=== PATIENT | female | born 1960 | race African-American/Black ===

== ENCOUNTER 2021-02-02 18:14 | Inpatient (IN) | payer OTHER ==
[2021-02-02] MEDS ORDERED: POTASSIUM CHLORIDE TABS 20 MEQ TABLET.ER (FP) PO ONE ×2 (19:59→22:23)
[2021-02-02 20:22] LABS: BASO % 0.8 % (0-2.0); EOS % 1.1 % (0-4.5); HEMATOCRIT 37.7 % (32.4-45.2); HEMOGLOBIN 12.3 GM/dL (10.7-15.3); LYMPH % 36.7 % (8-40); MCHC 32.8 g/dl (32.0-36.0); MEAN CELL VOLUME 76.4 fl (80-96); MEAN PLT VOLUME 9.7 fl (7.5-11.1); MONO % 7.8 % (3.8-10.2); NEUT % 53.6 % (42.8-82.8); PLATELET COUNT 308 10^3/uL (134-434); RBC 4.93 M/mm3 (3.60-5.2); RDW 14.7 % (11.6-15.6)
[2021-02-02] MEDS ORDERED: SODIUM CHLORIDE 0.9% 500 ML INFUS.BAG IV ONE (20:37)
[2021-02-02 20:46] LABS: ALBUMIN 3.7 g/dl (3.4-5.0); BLOOD UREA NITROGEN 15.9 mg/dL (7-18); CALCIUM 9.8 mg/dL (8.5-10.1)
[2021-02-02 20:52] LABS: TOT PROT 8.1 g/dl (6.4-8.2)
[2021-02-02 20:53] LABS: BILIRUBIN,TOTAL 0.4 mg/dL (0.2-1)
[2021-02-02 21:44] LABS: CHLORIDE 116 mmol/L (98-107); SODIUM 146 mmol/L (136-145)
[2021-02-02 21:50] LABS: BLOOD UREA NITROGEN 13.1 mg/dL (7-18); GLUCOSE,RANDOM 171 mg/dL (74-106)
[2021-02-02 21:51] LABS: CO2 23 mmol/L (21-32); MAGNESIUM 1.3 mg/dL (1.8-2.4)
[2021-02-02 21:52] LABS: SGPT/ALT 13 U/L (13-61)
[2021-02-02 21:53] LABS: ALBUMIN 2.5 g/dl (3.4-5.0); ALK PHOS 56 U/L (45-117); ANION GAP 7 MMOL/L (8-16); BILIRUBIN,TOTAL 0.2 mg/dL (0.2-1); CALCIUM 6.8 mg/dL (8.5-10.1); CREATININE 0.6 mg/dL (0.55-1.3); SGOT/AST 4 U/L (15-37); TOT PROT 4.8 g/dl (6.4-8.2)
[2021-02-02] MEDS ORDERED: MAGNESIUM SULF 50% (8.12 MEQ/2 ML-1 GM VIAL) IVPB ONE (22:14)
[2021-02-02] MEDS ORDERED: KCL 10 MEQ IVPB 30 MEQ/300 ML INFUS.BAG IVPB ONE (22:24)
[2021-02-02] MEDS: KCL 10 MEQ IVPB 10 MEQ/100 ML INFUS.BAG IVPB SCH (22:46)
[2021-02-02] MEDS ORDERED: MAGNESIUM SULFATE IN WATER 2 GM/50 ML IVPB IVPB ONE (22:47)
[2021-02-03] MEDS: KCL 10 MEQ IVPB 10 MEQ/100 ML INFUS.BAG IVPB SCH ×2 (00:09→01:14)
[2021-02-03 02:20] VITALS: BMI 29.9
[2021-02-03 03:35] LABS: BLOOD UREA NITROGEN 13.4 mg/dL (7-18)
[2021-02-03 03:38] LABS: CREATININE 0.8 mg/dL (0.55-1.3)
[2021-02-03] MEDS ORDERED: POTASSIUM CHLORIDE TABS 20 MEQ TABLET.ER (FP) PO ONE (03:56)
[2021-02-03] MEDS: INSULIN SLIDING SCALE (NOVOLOG) 1 VIAL SQ SCH ×2 (06:17→11:47)
[2021-02-03] MEDS ORDERED: CHOLECALCIFEROL (VIT D3) 1,000 UNIT (25 MCG) TABLET PO SCH (10:00)
[2021-02-03] MEDS ORDERED: ASCORBIC ACID 500 MG TABLET (FP) PO SCH (10:00)
[2021-02-03] MEDS ORDERED: ENOXAPARIN NA (PORCINE) 40 MG/0.4 ML DISP.SYRIN SQ SCH (10:00)
[2021-02-03] MEDS ORDERED: LOSARTAN POTASSIUM 50 MG TABLET PO SCH (10:00)
[2021-02-03] MEDS ORDERED: VITAMIN E 400 INTERNATIONAL-UNITS CAPSULE (FP) PO SCH (10:00)
[2021-02-03 10:03] LABS: BLOOD UREA NITROGEN 12.7 mg/dL (7-18)
[2021-02-03 10:06] LABS: CALCIUM 8.9 mg/dL (8.5-10.1)
[2021-02-03 10:07] LABS: CREATININE 0.8 mg/dL (0.55-1.3)
[2021-02-03] MEDS ORDERED: PT OWN MED DRAWER 7, Y5N ONE ×2 (10:30→13:39)
[2021-02-03 13:00] VITALS: BP 153/79; PULSE 77; TEMP 98.5
== END 2021-02-03 16:32 | disposition home or self-care (01) | DRG 425 ==
LOC: JER 18:14 → OBSVTOIN 22:27 → JERBED 22:27 → J8W 02-03 01:51
PROVIDERS: ADMIT Internal Medicine; ATTEND Internal Medicine
DX: E87.6 Hypokalemia (principal); I10 Essential (primary) hypertension; E11.9 Type 2 diabetes mellitus without complications; R25.2 Cramp and spasm; R11.0 Nausea; Z98.84 Bariatric surgery status
CPT/HCPCS: 36415; 80048; 80053; 82962; 83735; 85025; 93005; 93010; 99285-25; C9803; U0003; U0005

== ENCOUNTER 2021-03-14 14:01 | Emergency (ER) | payer OTHER ==
[2021-03-14 14:08] VITALS: TEMP 97.8; BMI 28.8
[2021-03-14] MEDS ORDERED: SODIUM CHLORIDE 0.9% 500 ML INFUS.BAG IV ONE (15:13)
[2021-03-14 16:38] LABS: BASO % 0.9 % (0-2.0); EOS % 1.5 % (0-4.5); MCH 25.2 pg (25.7-33.7); MCHC 33.2 g/dl (32.0-36.0); MEAN CELL VOLUME 75.8 fl (80-96); MEAN PLT VOLUME 9.1 fl (7.5-11.1); MONO % 7.9 % (3.8-10.2); NEUT % 56.7 % (42.8-82.8); PLATELET COUNT 334 10^3/uL (134-434); RBC 4.75 M/mm3 (3.60-5.2); RDW 16.4 % (11.6-15.6); WHITE BLOOD COUNT 7.5 K/mm3 (4.0-10.0)
[2021-03-14 16:45] LABS: PROTHROMBIN TIME (PATIENT) 12.3 SEC (9.7-13.0)
[2021-03-14 16:48] LABS: ACTIVATED PTT 32.9 SECONDS (25.2-36.5)
[2021-03-14 16:58] LABS: CHLORIDE 102 mmol/L (98-107); SODIUM 137 mmol/L (136-145)
[2021-03-14 17:02] LABS: ALBUMIN 3.9 g/dl (3.4-5.0); ANION GAP 8 MMOL/L (8-16); CO2 27 mmol/L (21-32); GLUCOSE,RANDOM 151 mg/dL (74-106); MAGNESIUM 1.7 mg/dL (1.8-2.4)
[2021-03-14 17:03] LABS: BLOOD UREA NITROGEN 26.8 mg/dL (7-18)
[2021-03-14 17:05] LABS: PHOSPHOROUS 3.4 mg/dL (2.5-4.9); SGOT/AST 19 U/L (15-37); SGPT/ALT 13 U/L (13-61)
[2021-03-14 17:06] LABS: CREATININE 1.2 mg/dL (0.55-1.3)
[2021-03-14 17:07] LABS: BILIRUBIN,TOTAL 0.4 mg/dL (0.2-1); TOT PROT 7.8 g/dl (6.4-8.2)
[2021-03-14 17:08] LABS: ALK PHOS 98 U/L (45-117)
[2021-03-14] MEDS ORDERED: POTASSIUM CHLORIDE TABS 20 MEQ TABLET.ER (FP) PO ONE (18:00)
[2021-03-14] MEDS ORDERED: LIDOCAINE HCL 2% JELLY 10 ML CARTRIDGE UR ONE (18:23)
[2021-03-14] MEDS ORDERED: MAGNESIUM 1GM/D5W - 1 GM/100 ML IVPB IVPB ONE (18:25)
[2021-03-14] MEDS ORDERED: POTASSIUM CHLORIDE TABS 10 MEQ TABLET.ER (FP) ONE (18:25)
[2021-03-14] MEDS ORDERED: KETOROLAC TROMETHAMINE 15 MG/ML VIAL ONE (18:38)
[2021-03-14 18:56] LABS: URINE APPEARANCE CLEAR; URINE BILIRUBIN NEGATIVE (NEGATIVE); URINE COLOR YELLOW; URINE GLUCOSE (UA) TRACE (NEGATIVE); URINE KETONE TRACE (NEGATIVE); URINE LEUK ESTERASE NEGATIVE (NEGATIVE); URINE NITRITE NEGATIVE (NEGATIVE); URINE PROTEIN NEGATIVE (NEGATIVE); URINE UROBILINOGEN 0.2 mg/dL (0.2-1.0)
[2021-03-14 19:13] LABS: BLOOD UREA NITROGEN 25.4 mg/dL (7-18); CALCIUM 9.5 mg/dL (8.5-10.1)
[2021-03-14 19:17] LABS: CREATININE 1.2 mg/dL (0.55-1.3)
[2021-03-14 20:14] VITALS: BP 150/90; PULSE 92
== END 2021-03-14 20:15 | disposition home or self-care (01) ==
LOC: JER 14:01
PROC: 3E033NZ Introduction of Analgesics, Hypnotics, Sedatives into Peripheral Vein, Percutaneous Approach (ICD-10-PCS; principal; 2021-03-14)
DX: R53.1 Weakness (principal); R19.7 Diarrhea, unspecified; R10.30 Lower abdominal pain, unspecified
CPT/HCPCS: 36415; 71046-TC-FY; 80048; 80053; 81003; 82550; 83735; 84100; 84443; 84484; 85025; 85610; 85730; 87086; 93005; 93010; 96365; 99284-25; C9803; U0003; U0005

== ENCOUNTER 2022-11-20 08:40 | Day surgery (SDC) | payer OTHER ==
[2022-11-16 13:09] VITALS: BMI 29.2
[2022-11-20] MEDS ORDERED: CEFAZOLIN 2 GM in DEXTROSE 5%-WATER - 50 ML IVPB ONE (09:03)
[2022-11-20] MEDS ORDERED: CELECOXIB 200 MG CAPSULE PO ONE (09:03)
[2022-11-20] MEDS ORDERED: TRANEXAMIC ACID 1000 MG/10 ML VIAL IVPUSH ONE (09:03)
[2022-11-20] MEDS ORDERED: DEXTROSE 50%-WATER 25 GM/50 ML DISP.SYRIN ONE ×2 (09:13→12:36)
[2022-11-20] MEDS ORDERED: ONDANSETRON 4 MG/2 ML VIAL ONE (09:18)
[2022-11-20] MEDS ORDERED: ceFAZolin SODIUM 1 GM VIAL ONE ×3 (09:18→10:26)
[2022-11-20] MEDS ORDERED: DEXAMETHASONE SOD PHOSPHATE 4 MG/1 ML VIAL ONE (09:18)
[2022-11-20] MEDS ORDERED: KETOROLAC TROMETHAMINE 30 MG/1 ML VIAL ONE (09:19)
[2022-11-20] MEDS ORDERED: MIDAZOLAM HCL 2 MG/2 ML SINGLE DOSE VIAL ONE (10:12)
[2022-11-20] MEDS ORDERED: BUPIVACAINE LIPOSOME/PF (EXPAREL) 266 MG/20 ML VIAL ONE (10:12)
[2022-11-20] MEDS ORDERED: BUPIVACAINE HCL/PF 0.5% (5 MG/ML) 30 ML VIAL IJ ONE (10:12)
[2022-11-20] MEDS ORDERED: ACETAMINOPHEN INJECTION 100 ML IVPB ONE (10:12)
[2022-11-20] MEDS ORDERED: VANCOMYCIN 1,000 MG VIAL (RESTRICTED TO ID ONLY) ONE (10:26)
[2022-11-20] MEDS ORDERED: PROPOFOL 20 ML ONE ×3 (10:56→11:27)
[2022-11-20] MEDS ORDERED: ONDANSETRON 4 MG/2 ML VIAL IVPUSH PRN (10:58)
[2022-11-20] MEDS ORDERED: LACTATED RINGERS SOLUTION 1,000 ML IV SCH (11:00)
[2022-11-20] MEDS ORDERED: PATIENT'S OWN MEDICATION (NON-FORMULARY) (Semaglutide [Ozempic] 1 MG/0.75 ML Pen.Injctr) SQ SCH (11:00)
[2022-11-20] MEDS ORDERED: VANCOMYCIN 1,000 MG VIAL (RESTRICTED TO ID ONLY) IVPB ONE (12:02)
[2022-11-20] MEDS ORDERED: DEXTROSE 50%-WATER 25 GM/50 ML DISP.SYRIN IVPUSH ONE (12:41)
[2022-11-20 13:36] LABS: CALCIUM 9.1 mg/dl (8.5-10); CREATININE 0.9 mg/dl (0.55-1.3); POTASSIUM 3.7 mmol/L (3.5-5.1)
[2022-11-20] MEDS: metFORMIN HCL 500 MG TABLET (FP) PO SCH (17:28)
[2022-11-20] MEDS: oxyCODONE HCL 5 MG TABLET PO PRN ×2 (18:21→19:36)
[2022-11-20] MEDS: CEFAZOLIN SODIUM 2 GM in DEXTROSE 5%-WATER 100 ML IVPB SCH (18:21)
[2022-11-20] MEDS ORDERED: HYDROmorphone HCl 2 MG/ML VIAL IVPUSH PRN (21:05)
[2022-11-20] MEDS ORDERED: ACETAMINOPHEN 1000 MG/100 ML BAG IVPB PRN (21:07)
[2022-11-20] MEDS ORDERED: HYDROmorphone HCl 2 MG/ML VIAL IVPB PRN (21:26)
[2022-11-20] MEDS ORDERED: HYDROmorphone HCl 2 MG/ML VIAL IVPB ONE (21:35)
[2022-11-20] MEDS ORDERED: ESCITALOPRAM OXALATE 10 MG TABLET PO SCH (22:00)
[2022-11-20] MEDS ORDERED: INSULIN (LEVEMIR) 100 UNITS/ML UNITS SQ SCH (22:00)
[2022-11-20] MEDS: GABAPENTIN 300 MG CAPSULE PO SCH (22:01)
[2022-11-20] MEDS: SENNOSIDES/DOCUSATE COMBO (SENNA PLUS) TABLET (UD) PO SCH (22:01)
[2022-11-21] MEDS: LACTATED RINGERS SOLUTION 1,000 ML IV SCH ×2 (00:16→14:21)
[2022-11-21] MEDS: CEFAZOLIN SODIUM 2 GM in DEXTROSE 5%-WATER 100 ML IVPB SCH (03:01)
[2022-11-21] MEDS: oxyCODONE HCL 5 MG TABLET PO PRN ×4 (05:19→16:28)
[2022-11-21] MEDS: metFORMIN HCL 500 MG TABLET (FP) PO SCH ×2 (06:13→16:53)
[2022-11-21] MEDS ORDERED: INSULIN (LEVEMIR) 100 UNITS/ML UNITS SQ SCH (07:00)
[2022-11-21] MEDS ORDERED: ASPIRIN 325 MG TABLET PO SCH (08:00)
[2022-11-21 08:17] LABS: HEMATOCRIT 32.6 % (32.4-45.2); HEMOGLOBIN 10.4 G/dL (10.7-15.3); MCH 26.2 pg (25.7-33.7); MEAN CELL VOLUME 81.9 fl (80-96); PLATELET COUNT 349.1 10^3/uL (134-434); RBC 3.98 10^6/uL (3.60-5.2); RDW 17.3 % (11.6-15.6); WHITE BLOOD COUNT 7.8 10^3/uL (4.0-10.8)
[2022-11-21] MEDS: GABAPENTIN 300 MG CAPSULE PO SCH (09:08)
[2022-11-21] MEDS: SENNOSIDES/DOCUSATE COMBO (SENNA PLUS) TABLET (UD) PO SCH (09:08)
[2022-11-21] MEDS ORDERED: HYDROCHLOROTHIAZIDE 25 MG TABLET (FP) PO SCH (10:00)
[2022-11-21] MEDS ORDERED: LOSARTAN POTASSIUM 50 MG TABLET PO SCH (10:00)
[2022-11-21] MEDS ORDERED: PANTOPRAZOLE 40 MG TABLET PO SCH (10:00)
[2022-11-21] MEDS ORDERED: MULTIVITAMINS (DAILY MVI) TABLET (FP) PO SCH (10:00)
[2022-11-21 14:17] VITALS: BP 115/64; PULSE 80; RESP 178; TEMP 99.3
[2022-11-21] MEDS ORDERED: ATORVASTATIN CA 20 MG TABLET (FP) PO SCH (22:00)
== END 2022-11-21 17:29 ==
LOC: FASUSAT 08:40 → FM/S 14:02 → FASUSAT 11-21 17:29
PROVIDERS: ATTEND Orthopaedic Surgery
PROC: 0SRC0J9 Replacement of Right Knee Joint with Synthetic Substitute, Cemented, Open Approach (ICD-10-PCS; principal; 2022-11-20 11:09)
DX: M17.11 Unilateral primary osteoarthritis, right knee (principal)
CPT/HCPCS: 20985; 27447; C1776; S2900; 36415; 73560-TC-RT-FY; 80048; 82962; 85027; 94760; 97010-GP; 97116-GP; 97162-GP; C1713